=== PATIENT | male | born 1975 | race Caucasian/White ===

== ENCOUNTER 2016-09-25 13:50 | Emergency (ER) | payer OTHER ==
[~2016-09-25] VITALS: Ht 182.9 cm; Wt 92.9 kg
[2016-09-25 13:54] VITALS: TEMP 36.6; Ht 182.9 cm; Wt 92.9 kg
[2016-09-25] MEDS ORDERED: AMPH30TA2 PO (14:27)
[2016-09-25] MEDS ORDERED: CLON1TAB3 PO (14:27)
[2016-09-25 14:43] LABS: BASO % 0.4 %; BASO ABS # 0.03 K/uL (0-0.2); COMPLETE YES; EOS % 2.3 %; IG% 0.5 %; LYMPH % 24.7 %; LYMPH ABS # 1.85 K/uL (1.2-3.4); MEAN CORPUSCULAR HEMOGLOBIN 30.1 pg (25-34); MEAN CORPUSCULAR HGB CONC 35.4 g/dl (32-36); MEAN PLATELET VOLUME 9.5 fL (7.4-10.4); MONO % 12.4 %; NEUT % 59.7 %; PLATELET COUNT 237 K/uL (130-400); RED BLOOD COUNT 4.59 M/uL (4.7-6.1); WHITE BLOOD COUNT 7.49 K/uL (4.8-10.8)
--- NOTE | 2016-09-25 14:47 | DIAGNOSTIC IMAGING REPORT ---
CHEST ONE VIEW PORTABLE CLINICAL HISTORY: Mood Disorder STROKE OVERDOSE COMPARISON STUDY: No previous studies for comparison. FINDINGS: The cardiac and mediastinal contours are normal. There is no evidence of focal pulmonary consolidation. There is no evidence of failure. No pleural effusions are visualized.[ IMPRESSION: No active disease in the chest. Electronically signed by: Armin Darnell M.D. 09/25/2016 2:46 PM Dictated Date/Time: 09/25/2016 2:46 PM
[2016-09-25 15:04] LABS: BUN/CREATININE RATIO 10.4 (10-20); CREATININE 1.1 mg/dl (0.60-1.40); POTASSIUM 3.6 mmol/L (3.5-5.1)
--- NOTE | 2016-09-25 18:32 | EMERGENCY ROOM VISIT NOTE ---
History Report prepared by Charlene: Jef Valencia Under the Supervision of: Dr. Sj William D.O. First contact with patient: 13:59 Chief Complaint: OVERDOSE (INTENTIONAL) Stated Complaint: DRUG OVERDOSE/DEPRESSION History of Present Illness The patient is a 41 year old male who presents to the Emergency Room for a mental health evaluation. Per the nursing staff, the patient is depressed and on heroin. The patient was found walking around [employer], and was brought here by ambulance. He says that he is a bit depressed. He states that his girlfriend is moving out of town, he misses his daughter, and he hates his job and the people that work there. He is a literacy teacher at restaurants in town. Today, the patient says he was called off work, and decided to green party with friends at some bars. The patient admits to doing Xanax today, as well as smoking 4 joints of marijuana. His last joint was 6 hours ago. The patient says he had 6 drinks today. He went to [employer], and says he was walking around in there and was picked up from there. The patient states that he last injected heroin yesterday. He did not inject today. The patient says that he will look at rehab places as soon as he leaves here. He denies any suicidal or homicidal ideations, or seeing or hearing voices. He also denies any chest pain , shortness of breath, nausea, vomiting, or diarrhea. He has not had any falls and has not hit his head recently. Per significant other he was supposed to go to rehabilitation today and he ran away. Last night he was taking Flexeril and there was a question whether he was using methamphetamine. Source of History: patient, nursing staff Onset: Found lying around furniture store prior to arrival Position: other (global - mental health evaluation) Quality: other (injected heroin yesterday, smoked 4 joints of marijuana today) Associated Symptoms: No SOB, No chest pain, No diarrhea, No nausea, No vomiting Note: Associated symptoms: Depressed. Denies suicidal or homicidal ideations, seeing or hearing voices. Review of Systems See HPI for pertinent positives & negatives. A total of 10 systems reviewed and were otherwise negative. Past Medical & Surgical Medical Problems: (1) No significant medical problems Surgical Problems: (1) No significant past surgical history Family History No pertinent family history Social History Smoking Status: Never Smoker Alcohol Use: occasionally Drug Use: heroin, marijuana Marital Status: single Housing Status: lives with significant other Occupation Status: employed Current/Historical Medications Scheduled Amphetamine-Dextroamphetamine 30MG (Adderall 30MG), 60 MG PO DAILY Clonazepam (Klonopin), 1 MG PO TID Allergies Coded Allergies: No Known Allergies (Unverified , 09/25/16) Physical Exam Vital Signs Date Time Temp Pulse Resp B/P Pulse Ox O2 Delivery O2 Flow Rate FiO2 09/25/16 18:35 108 16 139/90 96 Room Air 09/25/16 15:45 117 16 151/96 97 Room Air 09/25/16 13:54 36.6 123 20 144/95 97 Room Air Physical Exam GENERAL: ambulating in room, anxious, nontoxic, no acute distress. EYE EXAM: normal conjunctiva, PERRL and EOM's intact OROPHARYNX: no exudate, no erythema, lips, buccal mucosa, and tongue normal and mucous membranes are moist NECK: supple, no nuchal rigidity, no adenopathy, non-tender LUNGS: Clear to auscultation. Normal chest wall mechanics HEART: tachycardic, no murmurs, S1 normal and S2 normal ABDOMEN: abdomen soft, non-tender, normo-active bowel sounds, no masses, no rebound or guarding. BACK: Back is symmetrical on inspection and there is no deformity, no midline tenderness, no CVA tenderness. SKIN: no rashes and no bruising UPPER EXTREMITIES: upper extremities are normal. LOWER EXTREMITIES: No pitting edema. NEURO EXAM: Oriented to person, place, and time. Uncertain of events leading to arrival. Cranial nerves II-XII intact, normal speech, no gross weakness of arms , no gross weakness of legs. Medical Decision & Procedures ER Provider Diagnostic Interpretation: Xray results per the radiologist and my interpretation. CHEST ONE VIEW PORTABLE CLINICAL HISTORY: Mood Disorder STROKE OVERDOSE COMPARISON STUDY: No previous studies for comparison. FINDINGS: The cardiac and mediastinal contours are normal. There is no evidence of focal pulmonary consolidation. There is no evidence of failure. No pleural effusions are visualized.[ IMPRESSION: No active disease in the chest. Electronically signed by: Armin Darnell M.D. 09/25/2016 2:46 PM Dictated Date/Time: 09/25/2016 2:46 PM Laboratory Results 09/25/16 14:30 Red Blood Count 4.59, Mean Corpuscular Volume 85.0, Mean Corpuscular Hemoglobin 30.1, Mean Corpuscular Hemoglobin Concent 35.4, Mean Platelet Volume 9.5, Neutrophils (%) (Auto) 59.7, Lymphocytes (%) (Auto) 24.7, Monocytes (%) (Auto) 12.4, Eosinophils (%) (Auto) 2.3, Basophils (%) (Auto) 0.4, Neutrophils # (Auto ) 4.47, Lymphocytes # (Auto) 1.85, Monocytes # (Auto) 0.93, Eosinophils # (Auto ) 0.17, Basophils # (Auto) 0.03 09/25/16 14:30 Test 09/25/16 14:21 09/25/16 14:30 09/25/16 18:25 Bedside Glucose 108 mg/dl (70-99) White Blood Count 7.49 K/uL (4.8-10.8) Red Blood Count 4.59 M/uL (4.7-6.1) Hemoglobin 13.8 g/dL (14.0-18.0) Hematocrit 39.0 % (42-52) Mean Corpuscular Volume 85.0 fL (80-100) Mean Corpuscular Hemoglobin 30.1 pg (25-34) Mean Corpuscular Hemoglobin Concent 35.4 g/dl (32-36) Platelet Count 237 K/uL (130-400) Mean Platelet Volume 9.5 fL (7.4-10.4) Neutrophils (%) (Auto) 59.7 % Lymphocytes (%) (Auto) 24.7 % Monocytes (%) (Auto) 12.4 % Eosinophils (%) (Auto) 2.3 % Basophils (%) (Auto) 0.4 % Neutrophils # (Auto) 4.47 K/uL (1.4-6.5) Lymphocytes # (Auto) 1.85 K/uL (1.2-3.4) Monocytes # (Auto) 0.93 K/uL (0.11-0.59) Eosinophils # (Auto) 0.17 K/uL (0-0.5) Basophils # (Auto) 0.03 K/uL (0-0.2) RDW Standard Deviation 39.5 fL (36.4-46.3) RDW Coefficient of Variation 12.9 % (11.5-14.5) Immature Granulocyte % (Auto) 0.5 % Immature Granulocyte # (Auto) 0.04 K/uL (0.00-0.02) Anion Gap 5.0 mmol/L (3-11) Est Creatinine Clear Calc Drug Dose 99.0 ml/min Estimated GFR () 97.5 Estimated GFR (Non- 84.1 BUN/Creatinine Ratio 10.4 (10-20) Calcium Level 9.0 mg/dl (8.5-10.1) Total Bilirubin 0.7 mg/dl (0.2-1) Direct Bilirubin 0.2 mg/dl (0-0.2) Aspartate Amino Transf (AST/SGOT) 71 U/L (15-37) Alanine Aminotransferase (ALT/SGPT) 104 U/L (12-78) Alkaline Phosphatase 60 U/L (45-117) Total Protein 7.4 gm/dl (6.4-8.2) Albumin 3.9 gm/dl (3.4-5.0) Thyroid Stimulating Hormone (TSH) 1.000 uIu/ml (0.300-4.500) Ethyl Alcohol mg/dL < 3.0 mg/dl (0-3) Laboratory results per my review. ECG Indication: other (overdose) Rate (beats per minute): 112 Rhythm: sinus tachycardia Findings: no ectopy, other (normal axis) ED Course ED COURSE: Vital signs were reviewed and showed tachycardic vitals. The patients medical record was reviewed The above diagnostic studies were performed and reviewed. ED treatments and interventions as stated above. 1402: The patient was evaluated in room A8. A complete history and physical examination was performed. 1733: I talked to the patient's girlfriend. The girlfriend says that the patient was paranoid last night and was very agitated. She thinks that he was using meth, and using her Flexeril. She was supposed to take the patient to rehab today and that is why the patient ran away. She is coming in around 1900 or 2000 tonight because she is currently at work. 1754: The patient declined CT. 1845: The patient was signed out to Dr. Tai - [facility] - at end of shift. Medical Decision Differential diagnoses includes but is not limited to toxic, metabolic, infectious, traumatic, cardiac, neurologic, hematologic, psychiatric and inflammatory etiologies. Patient is a 41-year-old male that was brought in by EMS for a walking around [employer]. He has no psychiatric history. He admits to taking and abusing heroin yesterday along with smoking 4 drinks yesterday into this morning. Significant other notes that he was abusing Flexeril last night and may have also used methamphetamine as night. Labs show no significant leukocytosis or anemia. BMP is unremarkable. AST and ALTs are slightly elevated at 70/100. TSH is normal. Alcohol was negative. Unable to obtain a urine tox. EKG did show a sinus tachycardia. Patient is very anxious. He denies any auditory or visual hallucinations. He denies any suicidal or homicidal ideations. Patient on exam is very anxious appears to have some racing thoughts which I favor secondary to drug abuse. He also forgets conversations that have been had earlier in his evaluation. His chest x-ray was unremarkable. He declined CT of his head and I do not feel that this is an emergent necessity as this is likely secondary to intoxication/drug abuse. Currently awaiting significant other to present at bedside. If she notes that this is his baseline while abusing meds/drugs I feel it is reasonable to let him go in her care if she is comfortable. If this is different he may need admission and further workup for the AMS/confusion. He is mildly tachycardic although not significantly hypertensive to suggest withdrawal from benzos. Urine tox was just sent prior to sign out. Patient was signed out Dr. Tai awaiting for sitting another or improvement of mentation. Impression Primary Impression: Drug intoxication Additional Impressions: Agitation Depression Scribe Attestation The scribe's documentation has been prepared under my direction and personally reviewed by me in its entirety. I confirm that the note above accurately reflects all work, treatment, procedures, and medical decision making performed by me. Departure Information Dispostion Still a Patient (signed out to Dr. Tai) Referrals No Doctor, Assigned (PCP) Patient Instructions My [facility] Problem Qualifiers Primary Impression: Drug intoxication Complication of substance-induced condition: with unspecified complication Qualified Codes: F19.929 - Other psychoactive substance use, unspecified with intoxication, unspecified Additional Impressions: Depression Depression Type: unspecified Qualified Codes: F32.9 - Major depressive disorder, single episode, unspecified
[2016-09-25 18:49] LABS: URINE APPEARANCE CLEAR (CLEAR); URINE BILIRUBIN NEG (NEG); URINE COLOR YELLOW; URINE NITRITE NEG (NEG); URINE PH 7.5 (4.5-7.5); URINE SPECIFIC GRAVITY 1.004 (1.000-1.030); UROBILINOGEN NEG (NEG)
[2016-09-25 18:55] LABS: MANUAL MICROSCOPIC REQUIRED? YES; REVIEW REQ? NO
[2016-09-25 19:07] LABS: URINE BACTERIA NEG (NEG); URINE RBC 0-4 /hpf (0-4)
[2016-09-25 19:16] LABS: BENZODIAZEPINE, URINE POS (NEG); COCAINE,URINE NEG (NEG); PHENCYCLIDINE, URINE NEG (NEG)
[2016-09-25 22:45] VITALS: BP 159/87; PULSE 106; O2SAT 97
--- NOTE | 2016-09-26 01:24 | EMERGENCY ROOM VISIT NOTE ---
ED Visit Note First contact with patient: 22:24 I received this patient in signout at the change of shift from Dr. William, pending a more sober state and a friend arriving in the emergency department. The patient was observed for several hours longer in the emergency department. Case management was involved and spoke with the patient's baby's mother and current girlfriend. Each one of them stated that they were not able to pick the patient up in the emergency department. He stated that he has significant drug and alcohol issues and is a bad influence on their children. The patient was given contacts for local homeless shelters. He was happy with the plan for discharge to a taxi. Patient will return to the ER for worsening of symptoms or any medical concerns.
[2016-09-28 12:52] LABS: HYDROXYETHYLFLURAZEPAM CONF NEGATIVE NG/ML (CUTOFF=50); HYDROXYMIDAZOLAM NEGATIVE NG/ML (CUTOFF=50); HYDROXYTRIAZOLAM CONF NEGATIVE NG/ML (CUTOFF=50); TEMAZEPAM CONF NEGATIVE NG/ML (CUTOFF=50)
== END 2016-09-25 22:45 | disposition home or self-care (01) ==
LOC: C.EDB 13:52 → C.EDA 22:45
DX: F19.929 Other psychoactive substance use, unspecified with intoxication, unspecified (principal); F32.9 Major depressive disorder, single episode, unspecified; R45.1 Restlessness and agitation